=== PATIENT | female | born 1970 | race Caucasian/White ===

== ENCOUNTER 2018-08-18 10:25 | Day surgery (SDC) | payer OTHER ==
[2018-08-18] MEDS ORDERED: LIDOCAINE 2% MDV (20MG/ML) 20ML VIAL IV ONE (10:26)
[2018-08-18] MEDS ORDERED: PROPOFOL 10 MG/ML VIAL IV ONE (10:26)
--- NOTE | 2018-08-19 08:10 | Operative Note ---
DATE OF SURGERY: 08/18/18 OPERATION: Screening COLONOSCOPY. PREOPERATIVE DIAGNOSIS: Colon cancer screening, initial exam, average risk. POSTOPERATIVE DIAGNOSIS: [id number] sigmoid diverticulosis, otherwise normal exam. PROCEDURE: After informed consent was obtained from the patient, she was placed in the left lateral decubitus position in the endoscopy suite, sedated and monitored by the department of anesthesia. Digital rectal examination was unremarkable. A well-lubricated [id number] colonoscope was inserted into the rectum and advanced to the cecum. Preparation quality was excellent. The cecum, cecal bulb, ileocecal valve, appendiceal orifice, ascending colon, transverse colon, and descending colon were free of inflammatory changes, mass lesions, or polyp. The sigmoid colon demonstrated [id number] diverticular changes but no polyps were seen. The rectum was unremarkable in forward and in J-turn views. The endoscope was straightened, the rectal ampulla deflated, and the endoscope was removed. RECOMMENDATIONS: I suggest the patient follow a high-fiber diet and use a fiber supplement. She should undergo repeat exam in 10 years or sooner should symptoms warrant. As always, thank you for allowing me to participate in the healthcare of your patients. CC: Alvarez Alberto, DO [facility]
== END 2018-08-18 12:06 | disposition home or self-care (01) ==
LOC: HOP 10:25
PROVIDERS: ATTEND Internal Medicine Gastroenterology
DX: Z12.11 Encounter for screening for malignant neoplasm of colon (principal); K57.30 Diverticulosis of large intestine without perforation or abscess without bleeding; Z85.3 Personal history of malignant neoplasm of breast
CPT/HCPCS: 00812; G0121; 81025